=== PATIENT | male | born 1965 | race African-American/Black ===

== ENCOUNTER 2016-11-01 07:39 | Observation (INO) | payer MEDICAID ==
[~2016-11-01] VITALS: Ht 167.6 cm; Wt 65.8 kg
[~2016-11-01 07:39] MED LIST: ATEN50TA; PHEN100C70
[2016-11-01] MEDS ORDERED: SODIUM CHLORIDE 0.9% 1,000 ML IV ONE (08:09)
[2016-11-01] MEDS ORDERED: LABETALOL HCL 5 MG/ML 4ML SYRINGE IV ONE (08:15)
[2016-11-01 08:19] LABS: Basophils # (auto) 0.1 uL; Basophils % (auto) 1.1 % (0.0-2.0); Eosinophils # (auto) 0.1 uL; Hematocrit 37.2 % (41.0-53.0); Hemoglobin 12.1 g/dL (13.5-17.5); Mean Corpuscular Hemoglobin 29.1 pg (28.0-32.0); Mean Corpuscular Hgb Conc. 32.5 g/dL (32.0-36.0); Mean Corpuscular Volume 89.5 fL (80.0-100.0); Mean Platelet Volume 7.2 fL (7.4-10.4); Monocytes # (auto) 0.4 uL; Monocytes % (auto) 8.8 % (0.0-12.0); Neutrophils # (auto) 2.3 uL; Neutrophils % (auto) 47.1 % (37.0-80.0); Platelet Count (auto) 312 10^3/uL (140-450); Red Cell Distribution Width 15.4 % (11.6-16.0); White Blood Cell 4.9 10^3/uL (4.4-10.8)
[2016-11-01] MEDS ORDERED: ONDANSETRON HCL 4 MG/2 ML VIAL ONE (08:27)
[2016-11-01] MEDS ORDERED: ONDANSETRON HCL 4 MG/2 ML VIAL IV ONE ×2 (08:30→09:45)
[2016-11-01 08:31] LABS: INR 1.04 (0.9-1.15); Partial Thromboplastin Time 25.6 sec (22.64-33.71); Prothrombin Time 11.2 sec (9.37-12.3)
[2016-11-01 08:58] LABS: Albumin 3.3 g/dL (3.4-5.0); BUN/Creatinine Ratio 9.3; Calcium 8.4 mg/dL (8.5-10.1); Magnesium 2.3 mg/dL (1.6-2.6); Potassium 4.8 mmol/L (3.5-5.1)
[2016-11-01] MEDS ORDERED: hydrALAZINE HCL 20 MG/ML VL IV ONE (09:00)
[2016-11-01 09:04] LABS: Bilirubin, Total 0.4 mg/dL (0.2-1.0); Total Protein 7.9 g/dL (6.4-8.2)
[2016-11-01 09:54] VITALS: BP 139/97
== END 2016-11-01 10:34 | disposition short-term general hospital (02) | DRG 52 ==
LOC: EDSEX 07:39 → EDBD 07:39 → ER 07:46 → OVERFLOW 08:11 → ER 10:34
PROVIDERS: ADMIT Emergency Medicine; ATTEND Emergency Medicine
DX: I67.4 Hypertensive encephalopathy (principal); I61.9 Nontraumatic intracerebral hemorrhage, unspecified; N17.9 Acute kidney failure, unspecified; I12.9 Hypertensive chronic kidney disease with stage 1 through stage 4 chronic kidney disease, or unspecified chronic kidney disease; N18.9 Chronic kidney disease, unspecified; G40.909 Epilepsy, unspecified, not intractable, without status epilepticus; F41.9 Anxiety disorder, unspecified; I73.9 Peripheral vascular disease, unspecified; E44.1 Mild protein-calorie malnutrition
CPT/HCPCS: 36415; 70450; 71010; 80053; 83735; 84443; 84484; 85025; 85610; 85730; 93005; 96374; 96375; 96376; 99285; G0378; J0360; J2405; J3490; J7030

== ENCOUNTER 2017-04-24 11:46 | Inpatient (IN) | payer MEDICAID ==
[~2017-04-24] VITALS: Ht 167.6 cm; Wt 60.1 kg
[2017-04-24] MEDS ORDERED: MORPHINE SULF INJ 2 MG/ML SYRINGE 1ML IV ONE (12:00)
[2017-04-24 13:24] LABS: Basophils # (auto) 0.1 uL; Basophils % (auto) 0.7 % (0.0-2.0); Eosinophils # (auto) 0.3 uL; Eosinophils % (auto) 3.5 % (0.0-7.0); Hematocrit 29.4 % (41.0-53.0); Hemoglobin 9.6 g/dL (13.5-17.5); Lymphocytes # (auto) 1.1 uL; Mean Corpuscular Hemoglobin 27.3 pg (28.0-32.0); Mean Corpuscular Hgb Conc. 32.5 g/dL (32.0-36.0); Mean Corpuscular Volume 84.1 fL (80.0-100.0); Mean Platelet Volume 7.4 fL (6.9-10.8); Monocytes # (auto) 0.9 uL; Monocytes % (auto) 11.3 % (0.0-12.0); Neutrophils # (auto) 5.5 uL; Neutrophils % (auto) 70.5 % (37.0-80.0); Nucleated Red Blood Cells % 0.2 %; Platelet Count (auto) 282 10^3/uL (140-450); White Blood Cell 7.9 10^3/uL (4.4-10.8)
[2017-04-24 13:40] LABS: INR 1.12 (0.9-1.15); Partial Thromboplastin Time 26.8 sec (22.64-33.71); Prothrombin Time 12.2 sec (9.37-12.3)
[2017-04-24 13:41] LABS: Albumin 3.7 g/dL (3.4-5.0); BUN/Creatinine Ratio 7.6; Bilirubin, Total 0.3 mg/dL (0.2-1.0); Calcium 9.2 mg/dL (8.5-10.1); Magnesium 2.1 mg/dL (1.6-2.6); Potassium 4.4 mmol/L (3.5-5.1); Total Protein 8.7 g/dL (6.4-8.2)
[2017-04-24 13:58] LABS: B-Type Natriuretic Peptide 27.08 pg/mL (0-100)
[2017-04-24 14:01] LABS: Temperature: 23.1 C (20.0-25.0)
[2017-04-24] MEDS: SODIUM CHLORIDE 0.9% 1,000 ML IV SCH ×2 (15:13→23:28)
[2017-04-24] MEDS ORDERED: ACETAMINOPHEN 500 MG TAB PO PRN (15:15)
[2017-04-24] MEDS ORDERED: TEMAZEPAM 15 MG CAP PO PRN (15:15)
[2017-04-24] MEDS ORDERED: LACTULOSE 20Gm/30ML SOLN PO PRN (15:15)
[2017-04-24] MEDS ORDERED: LORazepam 0.5 MG TAB PO PRN (15:15)
[2017-04-24] MEDS ORDERED: NITROGLYCERIN 0.4 MG SL TAB SL PRN (15:15)
[2017-04-24] MEDS ORDERED: MORPHINE SULF INJ 2 MG/ML SYRINGE 1ML IV PRN ×2 (15:15)
[2017-04-24] MEDS ORDERED: HYDROcodone-ACET 5/325MG TAB PO PRN (15:15)
[2017-04-24] MEDS ORDERED: methylPREDNISolone SOD SUCC 40 MG/ML VL IM ONE (19:15)
[2017-04-24 21:20] LABS: Hemoglobin 9.5 g/dL (13.5-17.5)
[2017-04-25 01:15] LABS: Urine Bilirubin Negative (Negative); Urine Blood TRACE /uL (Negative); Urine Color Yellow (Yellow); Urine Glucose TRACE mg/dL (Normal); Urine Ketone Negative (Negative); Urine Nitrite Negative (Negative); Urine RBC <1 /hpf (0 - 3); Urine Urobilinogen Normal (Negative); Urine pH 5.5 (5.0-8.0)
[2017-04-25 03:29] LABS: Basophils # (auto) 0 uL; Basophils % (auto) 0.2 % (0.0-2.0); Eosinophils # (auto) 0 uL; Hematocrit 29.1 % (41.0-53.0); Hemoglobin 9.5 g/dL (13.5-17.5); Lymphocytes # (auto) 0.4 uL; Lymphocytes % (auto) 8.7 % (10.0-50.0); Mean Corpuscular Hemoglobin 27.5 pg (28.0-32.0); Mean Corpuscular Hgb Conc. 32.7 g/dL (32.0-36.0); Mean Corpuscular Volume 84.1 fL (80.0-100.0); Mean Platelet Volume 7.1 fL (6.9-10.8); Monocytes # (auto) 0.1 uL; Monocytes % (auto) 1.1 % (0.0-12.0); Neutrophils # (auto) 4.4 uL; Nucleated Red Blood Cells % 0.1 %; Platelet Count (auto) 252 10^3/uL (140-450); White Blood Cell 4.9 10^3/uL (4.4-10.8)
[2017-04-25 04:00] LABS: Albumin 3.4 g/dL (3.4-5.0); BUN/Creatinine Ratio 7.9; Bilirubin, Total 0.3 mg/dL (0.2-1.0); Calcium 9.1 mg/dL (8.5-10.1); Potassium 4.9 mmol/L (3.5-5.1); Total Protein 8.6 g/dL (6.4-8.2)
[2017-04-25] MEDS: SODIUM CHLORIDE 0.9% 1,000 ML IV SCH ×3 (07:19→23:13)
[2017-04-25 08:06] VITALS: BP 161/112
[2017-04-25] MEDS ORDERED: AMLO5TAB2 PO (08:58)
[2017-04-25] MEDS: PANTOPRAZOLE 40 MG TAB PO SCH (09:22)
[2017-04-25] MEDS: NITROGLYCERIN 0.2MG/HR TOPICAL PATCH TD SCH (09:25)
[2017-04-25] MEDS: amLODIPine BESYLATE 5 MG TAB PO SCH (09:26)
[2017-04-25] MEDS ORDERED: methylPREDNISolone SOD SUCC 40 MG/ML VL IV SCH (10:00)
[2017-04-25] MEDS ORDERED: KETOROLAC TROMETH 30 MG/ML 1ML VIAL IV PRN (10:30)
[2017-04-25 10:34] LABS: Hematocrit 26.5 % (41.0-53.0); Hemoglobin 8.7 g/dL (13.5-17.5)
[2017-04-25] MEDS: ASPirin 81 mg TAB PO SCH (10:45)
[2017-04-25] MEDS ORDERED: LIDOCAINE 2%HCL (LOCAL ANESTH.) INJ 20ML MDV ONE (12:11)
[2017-04-25 12:29] VITALS: BP 157/95
[2017-04-25] MEDS ORDERED: fentaNYL CITRATE 100 MCG/2 ML VL ONE (12:29)
[2017-04-25] MEDS ORDERED: MIDAZOLAM HCL 1MG/1ML-2 ML VIAL ONE (12:29)
[2017-04-25] MEDS ORDERED: ceFAZolin 1GM/50ML D5W 50 ML IV ONE (12:38)
[2017-04-25] MEDS ORDERED: HEPARIN SODIUM (PORCINE) 5000 UNITS/ML 1ML VIAL ONE (13:01)
[2017-04-25] MEDS: PROMETHAZINE HCL 25 MG/ML 1ML IV PRN (13:55)
[2017-04-25 16:48] VITALS: BP 145/94
[2017-04-25 20:00] VITALS: BP 167/102
[2017-04-25] MEDS: ATORVASTATIN 20 MG TAB PO SCH (21:59)
[2017-04-25 22:00] VITALS: BP 155/95
[2017-04-26] MEDS: PROMETHAZINE HCL 25 MG/ML 1ML IV PRN (02:23)
[2017-04-26] MEDS ORDERED: cloNIDine HCL 0.1 MG TAB ONE (02:57)
[2017-04-26] MEDS ORDERED: ONDANSETRON HCL 4 MG/2 ML VIAL IV ONE (03:00)
[2017-04-26] MEDS ORDERED: cloNIDine HCL 0.1 MG TAB PO ONE (03:00)
[2017-04-26 04:29] LABS: Basophils # (auto) 0 uL; Basophils % (auto) 0.1 % (0.0-2.0); Eosinophils # (auto) 0 uL; Hematocrit 26.6 % (41.0-53.0); Hemoglobin 8.8 g/dL (13.5-17.5); Lymphocytes # (auto) 0.7 uL; Lymphocytes % (auto) 7.6 % (10.0-50.0); Mean Corpuscular Hemoglobin 27.7 pg (28.0-32.0); Mean Corpuscular Volume 83.8 fL (80.0-100.0); Mean Platelet Volume 7.5 fL (6.9-10.8); Monocytes # (auto) 0.8 uL; Monocytes % (auto) 8.7 % (0.0-12.0); Neutrophils # (auto) 7.7 uL; Neutrophils % (auto) 83.6 % (37.0-80.0); Platelet Count (auto) 230 10^3/uL (140-450); Red Cell Distribution Width 13.8 % (11.8-14.3); White Blood Cell 9.2 10^3/uL (4.4-10.8)
[2017-04-26 04:49] LABS: BUN/Creatinine Ratio 9.1; Calcium 8.5 mg/dL (8.5-10.1)
[2017-04-26 05:00] VITALS: BP 160/108
[2017-04-26 09:00] VITALS: BP 143/97
[2017-04-26] MEDS: NITROGLYCERIN 0.2MG/HR TOPICAL PATCH TD SCH (10:00)
[2017-04-26 11:28] VITALS: BP 135/92
[2017-04-26] MEDS ORDERED: EPOETIN ALFA 10,000 UNIT/1 ML VIAL IV ONE (11:30)
[2017-04-26] MEDS ORDERED: SODIUM CHL 0.9% 1000 ML BAG XX ONE (11:30)
[2017-04-26] MEDS: SODIUM CHLORIDE 0.9% 1,000 ML IV SCH ×2 (11:57→15:13)
[2017-04-26] MEDS: ASPirin 81 mg TAB PO SCH (11:57)
[2017-04-26] MEDS: PANTOPRAZOLE 40 MG TAB PO SCH (11:58)
[2017-04-26] MEDS: amLODIPine BESYLATE 5 MG TAB PO SCH (11:58)
[2017-04-26 13:00] VITALS: BP 135/92
[2017-04-26 16:38] VITALS: BP 110/78
[2017-04-26] MEDS: ATORVASTATIN 20 MG TAB PO SCH (20:57)
[2017-04-26 22:00] VITALS: BP 101/74
[2017-04-27 05:00] VITALS: BP 124/89
[2017-04-27 06:11] LABS: Basophils # (auto) 0 uL; Basophils % (auto) 0.7 % (0.0-2.0); Eosinophils # (auto) 0.1 uL; Eosinophils % (auto) 0.8 % (0.0-7.0); Hematocrit 27.2 % (41.0-53.0); Hemoglobin 8.9 g/dL (13.5-17.5); Lymphocytes # (auto) 2.1 uL; Lymphocytes % (auto) 30.6 % (10.0-50.0); Mean Corpuscular Hemoglobin 27.7 pg (28.0-32.0); Mean Corpuscular Hgb Conc. 32.7 g/dL (32.0-36.0); Mean Corpuscular Volume 84.6 fL (80.0-100.0); Mean Platelet Volume 7.3 fL (6.9-10.8); Monocytes # (auto) 0.9 uL; Monocytes % (auto) 13.5 % (0.0-12.0); Neutrophils # (auto) 3.7 uL; Neutrophils % (auto) 54.4 % (37.0-80.0); Platelet Count (auto) 231 10^3/uL (140-450); Red Cell Distribution Width 13.6 % (11.8-14.3); White Blood Cell 6.7 10^3/uL (4.4-10.8)
[2017-04-27] MEDS: SODIUM CHLORIDE 0.9% 1,000 ML IV SCH ×4 (06:18→20:51)
[2017-04-27 06:34] LABS: Calcium 8.1 mg/dL (8.5-10.1); Magnesium 1.8 mg/dL (1.6-2.6)
[2017-04-27 06:39] LABS: BUN/Creatinine Ratio 9.1; Phosphorus 4.6 mg/dL (2.5-4.90)
[2017-04-27 08:30] VITALS: BP 127/93
[2017-04-27] MEDS: NITROGLYCERIN 0.2MG/HR TOPICAL PATCH TD SCH (10:39)
[2017-04-27] MEDS: PANTOPRAZOLE 40 MG TAB PO SCH (10:40)
[2017-04-27] MEDS: ASPirin 81 mg TAB PO SCH (10:40)
[2017-04-27] MEDS: amLODIPine BESYLATE 5 MG TAB PO SCH (10:40)
[2017-04-27 16:54] VITALS: BP_SYST 109; BP_SYST 129; BP_DIAS 75; BP_DIAS 97
[2017-04-27] MEDS: ATORVASTATIN 20 MG TAB PO SCH (20:52)
[2017-04-27 22:00] VITALS: BP 115/87
[2017-04-28 05:00] VITALS: BP 125/89
[2017-04-28] MEDS: SODIUM CHLORIDE 0.9% 1,000 ML IV SCH (05:07)
[2017-04-28 07:12] LABS: BUN/Creatinine Ratio 8.7; Calcium 7.7 mg/dL (8.5-10.1); Magnesium 1.6 mg/dL (1.6-2.6)
[2017-04-28 09:24] VITALS: BP 129/88
[2017-04-28] MEDS: amLODIPine BESYLATE 5 MG TAB PO SCH (09:44)
[2017-04-28] MEDS: ASPirin 81 mg TAB PO SCH (09:44)
[2017-04-28] MEDS: PANTOPRAZOLE 40 MG TAB PO SCH (09:44)
[2017-04-28] MEDS: NITROGLYCERIN 0.2MG/HR TOPICAL PATCH TD SCH (09:45)
[2017-04-28] MEDS ORDERED: ATOR20TA50 PO (13:01)
[2017-04-28] MEDS ORDERED: ASPI81CH43 PO (13:01)
[2017-04-28 13:24] VITALS: BP 146/97
[2017-04-28 17:42] VITALS: BP 139/95
[2017-04-28 22:00] VITALS: BP 145/94
[2017-04-28] MEDS: ATORVASTATIN 20 MG TAB PO SCH (22:26)
[2017-04-29 05:00] VITALS: BP 167/108
[2017-04-29 07:09] LABS: BUN/Creatinine Ratio 9.1; Phosphorus 3.3 mg/dL (2.5-4.90); Potassium 4.9 mmol/L (3.5-5.1)
[2017-04-29] MEDS ORDERED: EPOETIN ALFA 10,000 UNIT/1 ML VIAL IV ONE (08:00)
[2017-04-29] MEDS ORDERED: SODIUM CHL 0.9% 1000 ML BAG XX ONE (08:00)
[2017-04-29 09:00] VITALS: BP 128/83
[2017-04-29] MEDS: amLODIPine BESYLATE 5 MG TAB PO SCH (09:55)
[2017-04-29] MEDS: PANTOPRAZOLE 40 MG TAB PO SCH (09:55)
[2017-04-29] MEDS: ASPirin 81 mg TAB PO SCH (09:55)
[2017-04-29 13:00] VITALS: BP 157/98
[2017-04-29] MEDS: NITROGLYCERIN 0.2MG/HR TOPICAL PATCH TD SCH (13:42)
[2017-04-29] MEDS ORDERED: cloNIDine HCL 0.1 MG TAB PO PRN (16:15)
[2017-04-29 17:00] VITALS: BP 160/107
[2017-04-29 22:00] VITALS: BP 120/87
[2017-04-29] MEDS: ATORVASTATIN 20 MG TAB PO SCH (22:02)
[2017-04-30 04:49] VITALS: BP 145/99
[2017-04-30 06:20] LABS: Hemoglobin 8.1 g/dL (13.5-17.5)
[2017-04-30 06:24] LABS: Hematocrit 24.5 % (41.0-53.0); Mean Corpuscular Hemoglobin 27.8 pg (28.0-32.0); Mean Corpuscular Hgb Conc. 33.1 g/dL (32.0-36.0); Mean Platelet Volume 7.4 fL (6.9-10.8); Platelet Count (auto) 172 10^3/uL (140-450); Red Cell Distribution Width 13.4 % (11.8-14.3); White Blood Cell 6.9 10^3/uL (4.4-10.8)
[2017-04-30 06:31] LABS: Albumin 2.7 g/dL (3.4-5.0); Potassium 4.5 mmol/L (3.5-5.1)
[2017-04-30 06:33] LABS: BUN/Creatinine Ratio 5.8
[2017-04-30 06:36] LABS: Bilirubin, Total 0.2 mg/dL (0.2-1.0); Total Protein 6.7 g/dL (6.4-8.2)
[2017-04-30 06:37] LABS: Metamyelocytes % 0; Myelocytes % 0; Promyelocytes % 0; Reactive Lymphocytes 0
[2017-04-30 07:46] LABS: Platelet Estimate Adequate
[2017-04-30 08:24] VITALS: BP 111/99
[2017-04-30] MEDS: ASPirin 81 mg TAB PO SCH (11:05)
[2017-04-30] MEDS: PANTOPRAZOLE 40 MG TAB PO SCH (11:06)
[2017-04-30] MEDS: amLODIPine BESYLATE 5 MG TAB PO SCH (11:06)
[2017-04-30] MEDS: NITROGLYCERIN 0.2MG/HR TOPICAL PATCH TD SCH (11:07)
[2017-04-30 12:51] VITALS: BP 145/98
[2017-04-30 17:50] VITALS: BP 129/90
[2017-04-30] MEDS: ATORVASTATIN 20 MG TAB PO SCH (22:27)
[2017-04-30 23:22] VITALS: BP 135/96
[2017-05-01 05:21] VITALS: BP 126/90
[2017-05-01 06:59] LABS: Basophils # (auto) 0 uL; Basophils % (auto) 0.5 % (0.0-2.0); Eosinophils # (auto) 0.3 uL; Hematocrit 25.7 % (41.0-53.0); Hemoglobin 8.7 g/dL (13.5-17.5); Lymphocytes # (auto) 1.5 uL; Lymphocytes % (auto) 20.6 % (10.0-50.0); Mean Corpuscular Hemoglobin 28.3 pg (28.0-32.0); Mean Corpuscular Hgb Conc. 33.7 g/dL (32.0-36.0); Mean Platelet Volume 7.4 fL (6.9-10.8); Monocytes # (auto) 1.3 uL; Monocytes % (auto) 17.5 % (0.0-12.0); Neutrophils # (auto) 4.2 uL; Neutrophils % (auto) 57.4 % (37.0-80.0); Nucleated Red Blood Cells % 0.1 %; Platelet Count (auto) 187 10^3/uL (140-450); Red Cell Distribution Width 13.5 % (11.8-14.3); White Blood Cell 7.3 10^3/uL (4.4-10.8)
[2017-05-01 07:14] LABS: BUN/Creatinine Ratio 6.2; Calcium 8.6 mg/dL (8.5-10.1); Potassium 4.5 mmol/L (3.5-5.1)
[2017-05-01] MEDS ORDERED: EPOETIN ALFA 10,000 UNIT/1 ML VIAL IV ONE (08:00)
[2017-05-01] MEDS ORDERED: SODIUM CHL 0.9% 1000 ML BAG XX ONE (08:00)
[2017-05-01 08:49] VITALS: BP 133/98
[2017-05-01] MEDS: NITROGLYCERIN 0.2MG/HR TOPICAL PATCH TD SCH (10:00)
[2017-05-01] MEDS: PANTOPRAZOLE 40 MG TAB PO SCH (10:00)
[2017-05-01] MEDS: ASPirin 81 mg TAB PO SCH (10:00)
[2017-05-01] MEDS: amLODIPine BESYLATE 5 MG TAB PO SCH (10:00)
[2017-05-01] MEDS: PROMETHAZINE HCL 25 MG/ML 1ML IV PRN (12:38)
[2017-05-01 12:56] VITALS: BP 156/99
[2017-05-01 17:23] VITALS: BP 135/59
[2017-05-01 18:57] VITALS: BP 103/55
== END 2017-05-01 21:40 | disposition home or self-care (01) | DRG 190 ==
LOC: ER 11:46 → EDBD 11:46 → TELE 11:47 → TELE-WESTW 04-25 08:16 → WEST WING 04-29 00:24
PROVIDERS: ADMIT Internal Medicine; ATTEND Internal Medicine Pulmonary Disease
PROC: 0JH63XZ Insertion of Tunneled Vascular Access Device into Chest Subcutaneous Tissue and Fascia, Percutaneous Approach (ICD-10-PCS; 2017-04-24)
PROC: 02HV33Z Insertion of Infusion Device into Superior Vena Cava, Percutaneous Approach (ICD-10-PCS; 2017-04-24)
PROC: 5A1D70Z Performance of Urinary Filtration, Intermittent, Less than 6 Hours Per Day (ICD-10-PCS; principal; 2017-04-26)
PROC: 5A1D70Z Performance of Urinary Filtration, Intermittent, Less than 6 Hours Per Day (ICD-10-PCS; 2017-04-29)
PROC: 5A1D70Z Performance of Urinary Filtration, Intermittent, Less than 6 Hours Per Day (ICD-10-PCS; 2017-05-01)
DX: I21.4 Non-ST elevation (NSTEMI) myocardial infarction (principal); N17.9 Acute kidney failure, unspecified; E87.2 Acidosis; E44.0 Moderate protein-calorie malnutrition; I50.32 Chronic diastolic (congestive) heart failure; I13.11 Hypertensive heart and chronic kidney disease without heart failure, with stage 5 chronic kidney disease, or end stage renal disease; M94.0 Chondrocostal junction syndrome [Tietze]; E87.1 Hypo-osmolality and hyponatremia; D63.8 Anemia in other chronic diseases classified elsewhere; E78.00 Pure hypercholesterolemia, unspecified; E78.5 Hyperlipidemia, unspecified; F41.9 Anxiety disorder, unspecified; G40.909 Epilepsy, unspecified, not intractable, without status epilepticus; N18.6 End stage renal disease; Z79.82 Long term (current) use of aspirin; Z79.899 Other long term (current) drug therapy; Z82.49 Family history of ischemic heart disease and other diseases of the circulatory system; Z86.73 Personal history of transient ischemic attack (TIA), and cerebral infarction without residual deficits; Z99.2 Dependence on renal dialysis; Z80.41 Family history of malignant neoplasm of ovary; Z68.21 Body mass index [BMI] 21.0-21.9, adult
CPT/HCPCS: 36415; 71020; 76775; 76937; 77002; 80048; 80053; 80061; 80074; 80307; 81001; 82150; 82270; 82378; 82550; 83690; 83735; 83880; 84100; 84484; 85007; 85014; 85018; 85025; 85027; 85045; 85379; 85610; 85652; 85730; 86141; 90935; 93005; 93306; 94761; 96372; 96374; 96375; 99152; 99153; J0690; J0885; J1642; J2250

== ENCOUNTER 2017-07-25 19:33 | Emergency (ER) | payer MEDICAID ==
[~2017-07-25] VITALS: Ht 167.6 cm; Wt 63.5 kg
[~2017-07-25 19:33] MED LIST changes: +AMLO5TAB2 PO; +ASPI81CH43 PO; -ATEN50TA; +ATOR20TA50 PO; -PHEN100C70
[2017-07-25] MEDS ORDERED: cloNIDine HCL 0.1 MG TAB PO ONE ×2 (20:00→22:00)
[2017-07-25 21:13] LABS: Basophils # (auto) 0 uL; Basophils % (auto) 1.1 % (0.0-2.0); Eosinophils # (auto) 0.1 uL; Eosinophils % (auto) 3.4 % (0.0-7.0); Hematocrit 37.4 % (41.0-53.0); Hemoglobin 12.5 g/dL (13.5-17.5); Lymphocytes # (auto) 1.3 uL; Lymphocytes % (auto) 29.6 % (10.0-50.0); Mean Corpuscular Hemoglobin 27.8 pg (28.0-32.0); Mean Corpuscular Hgb Conc. 33.3 g/dL (32.0-36.0); Mean Corpuscular Volume 83.4 fL (80.0-100.0); Monocytes # (auto) 0.6 uL; Monocytes % (auto) 14.2 % (0.0-12.0); Neutrophils # (auto) 2.2 uL; Neutrophils % (auto) 51.7 % (37.0-80.0); Platelet Count (auto) 181 10^3/uL (140-450); Red Blood Cells 4.49 10^6/uL (4.5-5.90); Red Cell Distribution Width 15.2 % (11.8-14.3); White Blood Cell 4.3 10^3/uL (4.4-10.8)
[2017-07-25] MEDS ORDERED: ONDANSETRON HCL 4 MG/2 ML VIAL IV ONE (21:30)
[2017-07-25 21:37] LABS: Albumin 3.8 g/dL (3.4-5.0); BUN/Creatinine Ratio 3.1; Calcium 10.7 mg/dL (8.5-10.1); Potassium 3.1 mmol/L (3.5-5.1)
[2017-07-25 21:39] LABS: Bilirubin, Total 0.4 mg/dL (0.2-1.0); Total Protein 8.6 g/dL (6.4-8.2)
[2017-07-25] MEDS ORDERED: ONDANSETRON ODT 4 MG TAB PO ONE ×2 (21:45→22:00)
[2017-07-25 23:24] VITALS: BP 130/99
== END 2017-07-25 23:38 | disposition home or self-care (01) ==
LOC: EDBD → ER 19:33 → EDBD 19:33 → ER 23:38
DX: I16.0 Hypertensive urgency (principal); I12.0 Hypertensive chronic kidney disease with stage 5 chronic kidney disease or end stage renal disease; N18.6 End stage renal disease; I25.2 Old myocardial infarction; F17.210 Nicotine dependence, cigarettes, uncomplicated; E78.5 Hyperlipidemia, unspecified; Z99.2 Dependence on renal dialysis; Z86.73 Personal history of transient ischemic attack (TIA), and cerebral infarction without residual deficits; Z79.899 Other long term (current) drug therapy; Z79.82 Long term (current) use of aspirin; Z88.6 Allergy status to analgesic agent
CPT/HCPCS: 36415; 80053; 83880; 85025; 99284; J2405; Q0162

== ENCOUNTER 2017-08-23 22:21 | Emergency (ER) | payer MEDICAID ==
[~2017-08-23] VITALS: Ht 172.7 cm; Wt 72.6 kg
[2017-08-24 00:01] LABS: Basophils # (auto) 0.1 uL; Basophils % (auto) 1.4 % (0.0-2.0); Eosinophils # (auto) 0.2 uL; Hematocrit 35.1 % (41.0-53.0); Hemoglobin 11.2 g/dL (13.5-17.5); Lymphocytes # (auto) 1.9 uL; Lymphocytes % (auto) 40.4 % (10.0-50.0); Mean Corpuscular Hemoglobin 26.6 pg (28.0-32.0); Mean Corpuscular Volume 83.1 fL (80.0-100.0); Monocytes # (auto) 0.7 uL; Monocytes % (auto) 14.7 % (0.0-12.0); Neutrophils # (auto) 1.8 uL; Neutrophils % (auto) 38.5 % (37.0-80.0); Nucleated Red Blood Cells % 0.1 %; Platelet Count (auto) 228 10^3/uL (140-450); Red Blood Cells 4.23 10^6/uL (4.5-5.90); Red Cell Distribution Width 15.4 % (11.8-14.3); White Blood Cell 4.7 10^3/uL (4.4-10.8)
[2017-08-24 00:17] LABS: Albumin 3.6 g/dL (3.4-5.0); BUN/Creatinine Ratio 1.7; Calcium 12.3 mg/dL (8.5-10.1); Magnesium 2.4 mg/dL (1.6-2.6); Potassium 4.1 mmol/L (3.5-5.1)
[2017-08-24 00:24] LABS: Bilirubin, Total 0.3 mg/dL (0.2-1.0); Total Protein 8.6 g/dL (6.4-8.2)
[2017-08-24] MEDS ORDERED: SODIUM CHLORIDE 0.9% 1,000 ML IV ONE (04:00)
[2017-08-24] MEDS ORDERED: ONDANSETRON HCL 4 MG/2 ML VIAL IV ONE (04:00)
[2017-08-24] MEDS ORDERED: LORazepam 0.5 MG TAB PO ONE (04:00)
[2017-08-24 06:29] VITALS: BP 173/116
[2017-08-24] MEDS ORDERED: cloNIDine 0.2 mg/24hr 7DAY PATCH TD ONE (06:30)
[2017-08-24] MEDS ORDERED: cloNIDine HCL 0.1 MG TAB PO ONE (06:45)
== END 2017-08-24 05:57 | disposition home or self-care (01) ==
LOC: EDBD → EDUNIT# 22:38 → ER 22:38
DX: K80.20 Calculus of gallbladder without cholecystitis without obstruction (principal); N20.0 Calculus of kidney; I12.0 Hypertensive chronic kidney disease with stage 5 chronic kidney disease or end stage renal disease; N18.6 End stage renal disease; F41.9 Anxiety disorder, unspecified
CPT/HCPCS: 36415; 71045; 74176; 80053; 83735; 83880; 84484; 85025; 85379; 96361; 96374; 99285; J2405; J7030; 93005

== ENCOUNTER 2017-09-26 15:03 | Inpatient (IN) | payer MEDICAID ==
[~2017-09-26] VITALS: Ht 167.6 cm; Wt 64.2 kg
[2017-09-26] MEDS ORDERED: LORazepam 2MG/ML-1ML VIAL IV ONE (15:30)
[2017-09-26 16:24] LABS: Basophils # (auto) 0.1 uL; Eosinophils # (auto) 0.1 uL; Eosinophils % (auto) 2.3 % (0.0-7.0); Hematocrit 35.6 % (41.0-53.0); Hemoglobin 11.6 g/dL (13.5-17.5); Lymphocytes # (auto) 1.8 uL; Lymphocytes % (auto) 28.9 % (10.0-50.0); Mean Corpuscular Hemoglobin 27.9 pg (28.0-32.0); Mean Corpuscular Hgb Conc. 32.5 g/dL (32.0-36.0); Mean Corpuscular Volume 85.6 fL (80.0-100.0); Monocytes % (auto) 16.7 % (0.0-12.0); Neutrophils # (auto) 3.1 uL; Neutrophils % (auto) 51.1 % (37.0-80.0); Nucleated Red Blood Cells % 0.4 %; Platelet Count (auto) 199 10^3/uL (140-450); Red Blood Cells 4.15 10^6/uL (4.5-5.90); Red Cell Distribution Width 17.7 % (11.8-14.3); White Blood Cell 6.1 10^3/uL (4.4-10.8)
[2017-09-26 16:41] LABS: Albumin 3.7 g/dL (3.4-5.0); BUN/Creatinine Ratio 4.3; Bilirubin, Total 0.7 mg/dL (0.2-1.0); Calcium 12.4 mg/dL (8.5-10.1); Magnesium 2.6 mg/dL (1.6-2.6); Potassium 4.5 mmol/L (3.5-5.1); Total Protein 8.4 g/dL (6.4-8.2)
[2017-09-26 17:05] LABS: INR 1.2 (0.9-1.15); Partial Thromboplastin Time 28.5 sec (22.64-33.71); Prothrombin Time 13.1 sec (9.37-12.3)
[2017-09-26] MEDS ORDERED: ACETAMINOPHEN 500 MG TAB PO PRN (17:15)
[2017-09-26] MEDS ORDERED: PROMETHAZINE HCL 25 MG/ML 1ML IV PRN (17:15)
[2017-09-26] MEDS ORDERED: HYDROmorphone HCL 2 MG/ML VL IV PRN (17:15)
[2017-09-26] MEDS ORDERED: LACTULOSE 20Gm/30ML SOLN PO PRN (17:15)
[2017-09-26] MEDS ORDERED: NITROGLYCERIN 0.4 MG SL TAB SL PRN (17:15)
[2017-09-26] MEDS ORDERED: LORazepam 0.5 MG TAB PO PRN (17:15)
[2017-09-26] MEDS ORDERED: TEMAZEPAM 15 MG CAP PO PRN (17:15)
[2017-09-26 17:59] LABS: Urine Bacteria NONE SEEN /hpf (None Seen); Urine Blood 1+ /uL (Negative); Urine Specific Gravity 1.003 (1.001-1.035); Urine WBC 1 /hpf (0 - 3)
[2017-09-26 18:12] LABS: Alcohol, Urine < 3.0 mg/dL (0-5); Amphetamine Screen, Urine NEGATIVE (NEGATIVE); Barbiturate Scree,Urine NEGATIVE (NEGATIVE); Benzodiazephine Screen, Urine NEGATIVE (NEGATIVE); Cannabinoid Screen, Urine NEGATIVE (NEGATIVE); Cocaine Screen, Urine NEGATIVE (NEGATIVE); Opiate Scree,Urine NEGATIVE (NEGATIVE); Phencyclidine Screen, Urine NEGATIVE (NEGATIVE)
[2017-09-26 22:00] VITALS: BP 150/107
[2017-09-26] MEDS ORDERED: ATORVASTATIN 20 MG TAB PO SCH (22:00)
[2017-09-26] MEDS: METOPROLOL TARTRATE 25 MG TAB PO SCH (22:52)
[2017-09-26] MEDS: ATORVASTATIN 20 MG TAB PO SCH (22:52)
[2017-09-26] MEDS: HEPARIN SODIUM (PORCINE) 5000 UNITS/ML 1ML VIAL SC SCH (22:54)
[2017-09-27 05:00] VITALS: BP 149/99
[2017-09-27 07:49] LABS: Potassium 5.3 mmol/L (3.5-5.1)
[2017-09-27 07:50] LABS: Albumin 3.6 g/dL (3.4-5.0); Bilirubin, Total 0.8 mg/dL (0.2-1.0); Calcium 11.4 mg/dL (8.5-10.1)
[2017-09-27 08:54] VITALS: BP 128/86
[2017-09-27] MEDS: METOPROLOL TARTRATE 25 MG TAB PO SCH ×2 (10:00→22:00)
[2017-09-27] MEDS: amLODIPine BESYLATE 5 MG TAB PO SCH (10:00)
[2017-09-27 13:00] VITALS: BP 132/72
[2017-09-27] MEDS: HEPARIN SODIUM (PORCINE) 5000 UNITS/ML 1ML VIAL SC SCH ×2 (14:10→22:34)
[2017-09-27] MEDS: ASPirin 81 mg TAB PO SCH (14:10)
[2017-09-27] MEDS: PANTOPRAZOLE 40 MG TAB PO SCH (14:10)
[2017-09-27] MEDS: HYDROcodone-ACET 5/325MG TAB PO PRN (14:11)
[2017-09-27 14:13] VITALS: BP 101/72
[2017-09-27 16:35] VITALS: BP 114/84
[2017-09-27 21:59] VITALS: BP 114/81
[2017-09-27] MEDS: ATORVASTATIN 20 MG TAB PO SCH (22:35)
[2017-09-28] MEDS: HYDROcodone-ACET 5/325MG TAB PO PRN (05:06)
[2017-09-28 05:52] VITALS: BP 137/95
[2017-09-28 07:45] VITALS: BP 146/77
[2017-09-28] MEDS: HEPARIN SODIUM (PORCINE) 5000 UNITS/ML 1ML VIAL SC SCH (10:00)
[2017-09-28] MEDS ORDERED: HEPARIN SODIUM (PORCINE) 5000 UNITS/ML 1ML VIAL ONE (10:40)
[2017-09-28] MEDS: ASPirin 81 mg TAB PO SCH (10:44)
[2017-09-28] MEDS: PANTOPRAZOLE 40 MG TAB PO SCH (10:44)
[2017-09-28] MEDS: METOPROLOL TARTRATE 25 MG TAB PO SCH (10:45)
[2017-09-28] MEDS: amLODIPine BESYLATE 5 MG TAB PO SCH (10:45)
[2017-09-28 11:37] VITALS: BP 145/101
[2017-09-28 15:34] VITALS: BP 146/77
[2017-09-28 16:35] VITALS: BP 143/89
[2017-09-28] MEDS ORDERED: TEMAZEPAM 15 MG CAP PO ONE (21:00)
[2017-09-29 09:37] LABS: Folate (Folic Acid) 10.57 ng/mL (5.38-24)
== END 2017-09-28 17:30 | disposition home or self-care (01) | DRG 133 ==
LOC: ER 15:03 → EDUNIT# 15:03 → TELE 15:04 → EDBD 15:04 → TELE-EAST 20:37
PROVIDERS: ADMIT Internal Medicine; ATTEND Internal Medicine
PROC: 5A1D70Z Performance of Urinary Filtration, Intermittent, Less than 6 Hours Per Day (ICD-10-PCS; principal; 2017-09-27)
DX: J96.01 Acute respiratory failure with hypoxia (principal); I50.33 Acute on chronic diastolic (congestive) heart failure; I67.4 Hypertensive encephalopathy; I13.2 Hypertensive heart and chronic kidney disease with heart failure and with stage 5 chronic kidney disease, or end stage renal disease; N18.6 End stage renal disease; D63.1 Anemia in chronic kidney disease; E83.52 Hypercalcemia; F32.9 Major depressive disorder, single episode, unspecified; R27.0 Ataxia, unspecified; I16.0 Hypertensive urgency; G40.409 Other generalized epilepsy and epileptic syndromes, not intractable, without status epilepticus; F41.0 Panic disorder [episodic paroxysmal anxiety]; I25.10 Atherosclerotic heart disease of native coronary artery without angina pectoris; I25.2 Old myocardial infarction; Z79.899 Other long term (current) drug therapy; Z80.3 Family history of malignant neoplasm of breast; I69.354 Hemiplegia and hemiparesis following cerebral infarction affecting left non-dominant side; Z82.49 Family history of ischemic heart disease and other diseases of the circulatory system; Z99.2 Dependence on renal dialysis; Z88.6 Allergy status to analgesic agent
CPT/HCPCS: 36415; 71045; 80053; 80061; 80307; 81001; 82550; 82607; 82746; 83735; 83970; 84443; 84484; 85025; 85610; 85652; 85730; 90935; 93005; 93886; 96374; 99291